=== PATIENT | male | born 1960 | race African-American/Black ===

== ENCOUNTER 2020-10-08 18:01 | Inpatient (IN) ==
[2020-10-08] MEDS ORDERED: NS 0.9% 1000 ml BAG 1,000 ML IV ONE (18:02)
[2020-10-08] MEDS ORDERED: Ondansetron 4 mg VIAL 2 MG/ML 2 ml VIAL IV ONE (18:03)
[2020-10-08] MEDS ORDERED: Iodixanol (CONTRAST) 320 MG/ML 100 ML SDV IV ONE (18:22)
[2020-10-08 18:33] LABS: Albumin 4.2 g/dL (3.2-5.2); Calcium 9.4 mg/dL (8.6-10.3); EGFR African American 63.8 (>60); EGFR Non-African American 52.7 (>60); Globulin 4.4 g/dL (2-4); HDL Cholesterol 33.4 mg/dL; Potassium 3.9 mmol/L (3.5-5.0); Total Bilirubin 0.5 mg/dL (0.2-1.0); Total Protein 8.6 g/dL (6.4-8.9)
[2020-10-08 18:47] LABS: Activated Partial Thrombo Time 26.5 seconds (26.0-38.0); INR 1.25 (0.86-1.15)
[2020-10-08 19:06] LABS: Hemoglobin 4.8 g/dL (14.0-18.0)
[2020-10-08 19:08] LABS: White Blood Count 10.5 10^3/uL (3.5-10.8)
[2020-10-08 19:09] LABS: Hematocrit 17 % (42-52); Red Blood Count 2.68 10^6 /uL (4.18-5.48)
[2020-10-08 19:13] LABS: Nucleated Red Blood Cells % 0.3
[2020-10-08 19:14] LABS: ABS Basophils 0.1 10^3/ul (0-0.2); Lymphocyte % 12.4 %
[2020-10-08 19:15] LABS: ABS Lymphocytes 1.3 10^3/ul (1.0-4.8); ABS Monocytes 0.5 10^3/ul (0-0.8); ABS Neutrophils 8.7 10^3/ul (1.5-7.7)
[2020-10-08 19:20] LABS: Platelet Count 572 10^3/uL (150-450)
[2020-10-08 19:21] LABS: Mean Corpuscular HGB Conc 29 g/dL (31-36); Mean Corpuscular Hemoglobin 18 pg (27-31); Mean Corpuscular Volume 62 fL (80-94); Red Cell Distribution Width 30 % (10-15)
[2020-10-08 19:22] LABS: Mean Platelet Volume 8.3 fL (7.4-10.4)
[2020-10-08 19:52] LABS: Hypochromasia 3+
[2020-10-08 19:53] LABS: Anisocytosis 1+; Platelet Morphology Large; Polychromasia 1+
[2020-10-08 20:41] LABS: Urine Appearance Clear; Urine Bilirubin Negative (Negative); Urine Blood Negative (Negative); Urine Color Straw; Urine Glucose Negative (Negative); Urine Ketones Negative (Negative); Urine Nitrite Negative (Negative); Urine Protein Negative (Negative); Urine Specific Gravity 1.033 (1.002-1.030); Urine Urobilinogen Negative (Negative)
[2020-10-09 04:22] LABS: Hematocrit 19 % (42-52)
[2020-10-09 04:23] LABS: Hemoglobin 5.9 g/dL (14.0-18.0)
[2020-10-09] MEDS: Pantoprazole VIAL 40 MG VIAL IV SCH ×2 (04:31→20:20)
[2020-10-09 04:37] LABS: % Iron Saturation 27 % (15-55); Iron 144 ug/dL (50-212); Total Iron Binding Capacity 529 mcg/dL (250-450); Transferrin 378 mg/dL (203-362); Unsaturated Iron Binding < 514 ug/dL
[2020-10-09 06:07] LABS: ABS Basophils 0.1 10^3/ul (0-0.2); ABS Lymphocytes 1.7 10^3/ul (1.0-4.8); ABS Monocytes 0.7 10^3/ul (0-0.8); ABS Neutrophils 5.4 10^3/ul (1.5-7.7); Eosinophil % 0.3 %; Mean Corpuscular HGB Conc 30 g/dL (31-36); Mean Corpuscular Hemoglobin 19 pg (27-31); Mean Corpuscular Volume 65 fL (80-94); Mean Platelet Volume 8.4 fL (7.4-10.4); Nucleated Red Blood Cells % 0.3; Platelet Count 445 10^3/uL (150-450); Red Blood Count 3.05 10^6 /uL (4.18-5.48); Red Cell Distribution Width 30 % (10-15); White Blood Count 7.9 10^3/uL (3.5-10.8)
[2020-10-09 08:54] LABS: Hematocrit 22 % (42-52); Hemoglobin 6.9 g/dL (14.0-18.0)
[2020-10-09 09:27] LABS: C Reactive Protein 1.63 mg/L (<8.01)
[2020-10-09] MEDS ORDERED: Iron Sucrose 200 MG in NS 0.9% 100 ml BAG 100 ML IVPB ONE (14:33)
[2020-10-09] MEDS ORDERED: Midazolam 10 mg/10 ml VIAL 1 mg/ml 10 ml VIAL (10 mg) ONE (15:25)
[2020-10-09] MEDS ORDERED: fentaNYL 100 mcg/2 ml 50 MCG/ML VIAL ONE (15:26)
[2020-10-09] MEDS ORDERED: PEG 3000 GI LAVAGE 1 GALLON PO ONE (16:41)
[2020-10-09 22:39] LABS: Hematocrit 26 % (42-52); Hemoglobin 8.2 g/dL (14.0-18.0)
[2020-10-10 06:15] LABS: Hematocrit 25 % (42-52); Hemoglobin 7.8 g/dL (14.0-18.0); Mean Corpuscular HGB Conc 31 g/dL (31-36); Mean Corpuscular Hemoglobin 22 pg (27-31); Mean Corpuscular Volume 69 fL (80-94); Mean Platelet Volume 8.1 fL (7.4-10.4); Platelet Count 355 10^3/uL (150-450); Red Blood Count 3.62 10^6 /uL (4.18-5.48); Red Cell Distribution Width 33 % (10-15); White Blood Count 7.9 10^3/uL (3.5-10.8)
[2020-10-10 06:32] LABS: Calcium 8.9 mg/dL (8.6-10.3); EGFR African American 74.3 (>60); EGFR Non-African American 61.4 (>60); Potassium 3.7 mmol/L (3.5-5.0)
[2020-10-10] MEDS: Pantoprazole VIAL 40 MG VIAL IV SCH ×2 (08:47→20:49)
[2020-10-10] MEDS: Iron Sucrose 200 MG in NS 0.9% 100 ml BAG 100 ML IVPB SCH (10:05)
[2020-10-10] MEDS ORDERED: fentaNYL 100 mcg/2 ml 50 MCG/ML VIAL ONE (12:03)
[2020-10-10] MEDS ORDERED: Midazolam 10 mg/10 ml VIAL 1 mg/ml 10 ml VIAL (10 mg) ONE (12:03)
[2020-10-11 07:16] LABS: Hematocrit 27 % (42-52); Hemoglobin 8.5 g/dL (14.0-18.0); Mean Corpuscular HGB Conc 32 g/dL (31-36); Mean Corpuscular Hemoglobin 22 pg (27-31); Mean Corpuscular Volume 70 fL (80-94); Mean Platelet Volume 8.2 fL (7.4-10.4); Platelet Count 314 10^3/uL (150-450); Red Blood Count 3.84 10^6 /uL (4.18-5.48); Red Cell Distribution Width 33 % (10-15); White Blood Count 7.5 10^3/uL (3.5-10.8)
[2020-10-11 07:25] LABS: Calcium 9.3 mg/dL (8.6-10.3); EGFR African American 70.2 (>60); Potassium 3.9 mmol/L (3.5-5.0)
[2020-10-11] MEDS: Pantoprazole VIAL 40 MG VIAL IV SCH (09:54)
[2020-10-11] MEDS: Iron Sucrose 200 MG in NS 0.9% 100 ml BAG 100 ML IVPB SCH (09:58)
[2020-10-11 11:40] VITALS: BP 146/81
== END 2020-10-11 15:00 | disposition home or self-care (01) | DRG 811 ==
LOC: ED 18:01 → MEDTELE 23:51
PROVIDERS: ADMIT Internal Medicine; ATTEND Hospitalist

== ENCOUNTER 2020-10-16 19:23 | Inpatient (IN) ==
[2020-10-17] MEDS ORDERED: NS 0.9% 1000 ml BAG 1,000 ML IV ONE (00:17)
[2020-10-17 01:00] LABS: Hematocrit 26 % (42-52); Hemoglobin 7.9 g/dL (14.0-18.0); Mean Corpuscular HGB Conc 30 g/dL (31-36); Mean Corpuscular Hemoglobin 24 pg (27-31); Mean Corpuscular Volume 78 fL (80-94); Mean Platelet Volume 8.1 fL (7.4-10.4); Platelet Count 129 10^3/uL (150-450); Red Blood Count 3.35 10^6 /uL (4.18-5.48); Red Cell Distribution Width 39 % (10-15); White Blood Count 6.4 10^3/uL (3.5-10.8)
[2020-10-17 01:09] LABS: Activated Partial Thrombo Time 31.4 seconds (26.0-38.0); INR 1.27 (0.86-1.15)
[2020-10-17 01:17] LABS: C Reactive Protein 1.97 mg/L (<8.01); Calcium 9.2 mg/dL (8.6-10.3); EGFR African American 79.6 (>60); EGFR Non-African American 65.7 (>60); Globulin 3.9 g/dL (2-4); Potassium 3.9 mmol/L (3.5-5.0); Total Bilirubin 0.3 mg/dL (0.2-1.0); Total Protein 7.9 g/dL (6.4-8.9)
[2020-10-17 03:55] LABS: ABS Lymphocytes 1.7 10^3/ul (1.0-4.8); ABS Monocytes 0.5 10^3/ul (0-0.8); ABS Neutrophils 4.1 10^3/ul (1.5-7.7); Anisocytosis 3+; Eosinophil % 0.6 %; Hypochromasia 1+; Lymphocyte % 26.9 %; Microcytosis 1+
[2020-10-17 06:10] LABS: Hematocrit 22 % (42-52); Hemoglobin 6.8 g/dL (14.0-18.0); Mean Corpuscular HGB Conc 31 g/dL (31-36); Mean Corpuscular Hemoglobin 24 pg (27-31); Mean Corpuscular Volume 78 fL (80-94); Red Blood Count 2.77 10^6 /uL (4.18-5.48); Red Cell Distribution Width 38 % (10-15); White Blood Count 6.5 10^3/uL (3.5-10.8)
[2020-10-17 06:23] LABS: Albumin 3.5 g/dL (3.2-5.2); Albumin/Globulin Ratio 1.1 (1-3); Calcium 8.4 mg/dL (8.6-10.3); EGFR African American 85.6 (>60); EGFR Non-African American 70.7 (>60); Globulin 3.3 g/dL (2-4); Total Bilirubin 0.3 mg/dL (0.2-1.0); Total Protein 6.8 g/dL (6.4-8.9)
[2020-10-17 06:29] LABS: Mean Platelet Volume 8.4 fL (7.4-10.4); Platelet Count 98 10^3/uL (150-450)
[2020-10-17 06:30] LABS: ABS Basophils 0.1 10^3/ul (0-0.2); ABS Lymphocytes 1.4 10^3/ul (1.0-4.8); ABS Monocytes 0.5 10^3/ul (0-0.8); ABS Neutrophils 4.5 10^3/ul (1.5-7.7); Eosinophil % 0.4 %; Lymphocyte % 22.2 %; Nucleated Red Blood Cells % 0.1
[2020-10-17 11:45] LABS: Fibrinogen 257.3 mg/dL (110.8-404.3)
[2020-10-17 16:58] LABS: Hematocrit 26 % (42-52); Hemoglobin 8.2 g/dL (14.0-18.0); Mean Corpuscular HGB Conc 31 g/dL (31-36); Mean Corpuscular Hemoglobin 25 pg (27-31); Mean Corpuscular Volume 79 fL (80-94); Mean Platelet Volume 8.1 fL (7.4-10.4); Platelet Count 101 10^3/uL (150-450); Red Cell Distribution Width 35 % (10-15); White Blood Count 4.9 10^3/uL (3.5-10.8)
[2020-10-17] MEDS ORDERED: Iohexol 300 (CONTRAST) 10 ML SDV IV ONE (19:45)
[2020-10-17] MEDS ORDERED: Polyethylene Glycol 3350 17 GM PACKET PO ONE (21:00)
[2020-10-18 06:23] LABS: Hematocrit 25 % (42-52); Hemoglobin 8.3 g/dL (14.0-18.0); Mean Corpuscular HGB Conc 33 g/dL (31-36); Mean Corpuscular Hemoglobin 26 pg (27-31); Mean Corpuscular Volume 78 fL (80-94); Mean Platelet Volume 8.4 fL (7.4-10.4); Platelet Count 105 10^3/uL (150-450); Red Blood Count 3.23 10^6 /uL (4.18-5.48); Red Cell Distribution Width 36 % (10-15); White Blood Count 5.3 10^3/uL (3.5-10.8)
[2020-10-18 06:44] LABS: Anion Gap 9 mmol/L (2-11); Blood Urea Nitrogen 14 mg/dL (6-24); CO2 Carbon Dioxide 19 mmol/L (22-32); Calcium 8.8 mg/dL (8.6-10.3); Chloride 107 mmol/L (101-111); EGFR African American 85.6 (>60); EGFR Non-African American 70.7 (>60); Glucose 93 mg/dL (70-100); Sodium 135 mmol/L (135-145)
[2020-10-18] MEDS ORDERED: Midazolam 10 mg/10 ml VIAL 1 mg/ml 10 ml VIAL (10 mg) ONE (10:35)
[2020-10-18] MEDS ORDERED: fentaNYL 100 mcg/2 ml 50 MCG/ML VIAL ONE ×2 (10:35)
[2020-10-18] MEDS ORDERED: Midazolam 10 mg/10 ml VIAL 1 mg/ml 10 ml VIAL (10 mg) IV SLOW PU ONE (10:35)
[2020-10-18] MEDS ORDERED: Polyethylene Glycol 3350 17 GM PACKET PO ONE (22:00)
[2020-10-19 05:56] LABS: Hematocrit 25 % (42-52); Hemoglobin 7.8 g/dL (14.0-18.0); Mean Corpuscular HGB Conc 32 g/dL (31-36); Mean Corpuscular Hemoglobin 25 pg (27-31); Mean Corpuscular Volume 80 fL (80-94); Mean Platelet Volume 8.3 fL (7.4-10.4); Platelet Count 140 10^3/uL (150-450); Red Blood Count 3.08 10^6 /uL (4.18-5.48); Red Cell Distribution Width 37 % (10-15); White Blood Count 6.1 10^3/uL (3.5-10.8)
[2020-10-19] MEDS ORDERED: Polyethylene Glycol 3350 17 GM PACKET PO ONE ×2 (06:00→17:00)
[2020-10-19 14:01] LABS: % Iron Saturation 21 % (15-55); Iron 84 ug/dL (50-212); Total Iron Binding Capacity 407 mcg/dL (250-450); Transferrin 291 mg/dL (203-362); Unsaturated Iron Binding < 392 ug/dL
[2020-10-19 14:22] LABS: Ferritin 266.2 ng/mL (24-336)
[2020-10-20] MEDS ORDERED: Polyethylene Glycol 3350 17 GM PACKET PO ONE (06:00)
[2020-10-20 06:27] LABS: Hematocrit 26 % (42-52); Hemoglobin 8.2 g/dL (14.0-18.0); Mean Corpuscular HGB Conc 32 g/dL (31-36); Mean Corpuscular Hemoglobin 26 pg (27-31); Mean Corpuscular Volume 80 fL (80-94); Mean Platelet Volume 8.8 fL (7.4-10.4); Platelet Count 191 10^3/uL (150-450); Red Cell Distribution Width 37 % (10-15); White Blood Count 5.1 10^3/uL (3.5-10.8)
[2020-10-20 06:38] LABS: Calcium 9.2 mg/dL (8.6-10.3); EGFR African American 85.6 (>60); EGFR Non-African American 70.7 (>60)
[2020-10-20] MEDS ORDERED: D5LR 1000 ml BAG 1,000 ML IV SCH (10:00)
[2020-10-20] MEDS: Pantoprazole VIAL 40 MG VIAL IV SCH (12:23)
[2020-10-20 17:37] LABS: Anaplasma phagocytophilum Negative (Negative); B. miyamotoi PCR, B Negative (Negative); Babesia divergens/MO-1 Negative (Negative); Babesia ducani Negative (Negative); Ehrlichia chaffeensis Negative (Negative); Ehrlichia ewingii/canis Negative (Negative); Ehrlichia muris eauclairensis Negative (Negative)
[2020-10-21 06:16] LABS: Hematocrit 25 % (42-52); Hemoglobin 8.4 g/dL (14.0-18.0); Mean Corpuscular HGB Conc 33 g/dL (31-36); Mean Corpuscular Hemoglobin 27 pg (27-31); Mean Corpuscular Volume 80 fL (80-94); Mean Platelet Volume 8.6 fL (7.4-10.4); Platelet Count 268 10^3/uL (150-450); Red Blood Count 3.15 10^6 /uL (4.18-5.48); Red Cell Distribution Width 37 % (10-15); White Blood Count 5.9 10^3/uL (3.5-10.8)
[2020-10-21 06:26] LABS: INR 1.3 (0.86-1.15)
[2020-10-21 06:39] LABS: EGFR African American 83.8 (>60); EGFR Non-African American 69.2 (>60); Magnesium 2.1 mg/dL (1.9-2.7); Potassium 3.7 mmol/L (3.5-5.0)
[2020-10-21 06:40] LABS: ABS Basophils 0.1 10^3/ul (0-0.2); ABS Eosinophils 0.1 10^3/ul (0-0.6); ABS Lymphocytes 1.5 10^3/ul (1.0-4.8); ABS Monocytes 0.4 10^3/ul (0-0.8); ABS Neutrophils 3.9 10^3/ul (1.5-7.7); Lymphocyte % 24.8 %
[2020-10-21 06:41] LABS: Anisocytosis 3+; Polychromasia 1+
[2020-10-21] MEDS: Pantoprazole VIAL 40 MG VIAL IV SCH (09:01)
[2020-10-21] MEDS ORDERED: Gelfoam 12-7 ADSORBABL SPONGE ONE ×2 (09:56)
[2020-10-21] MEDS ORDERED: Gelfoam Sponge SIZE 100 SPONGE ONE ×2 (09:56)
[2020-10-21] MEDS ORDERED: fentaNYL 100 mcg/2 ml 50 MCG/ML VIAL ONE ×3 (11:44→11:45)
[2020-10-21] MEDS ORDERED: Iohexol 300 (CONTRAST) 10 ML SDV IV ONE (15:43)
[2020-10-22 05:05] LABS: Hematocrit 25 % (42-52); Hemoglobin 8.1 g/dL (14.0-18.0); Mean Corpuscular HGB Conc 33 g/dL (31-36); Mean Corpuscular Hemoglobin 26 pg (27-31); Mean Corpuscular Volume 80 fL (80-94); Mean Platelet Volume 8.6 fL (7.4-10.4); Platelet Count 325 10^3/uL (150-450); Red Blood Count 3.09 10^6 /uL (4.18-5.48); Red Cell Distribution Width 36 % (10-15); White Blood Count 4.6 10^3/uL (3.5-10.8)
[2020-10-22 05:12] LABS: ABS Lymphocytes 1.3 10^3/ul (1.0-4.8); ABS Monocytes 0.3 10^3/ul (0-0.8); ABS Neutrophils 2.9 10^3/ul (1.5-7.7); Eosinophil % 0.6 %; Lymphocyte % 27.9 %
[2020-10-22 05:34] LABS: Calcium 8.8 mg/dL (8.6-10.3); EGFR African American 90.5 (>60); EGFR Non-African American 74.8 (>60); Potassium 3.7 mmol/L (3.5-5.0)
[2020-10-22] MEDS: Pantoprazole VIAL 40 MG VIAL IV SCH (08:31)
[2020-10-22] MEDS ORDERED: Potassium Chlor 20 meq TAB.ER PO ONE (11:58)
[2020-10-23 05:55] LABS: Hematocrit 26 % (42-52); Hemoglobin 8.5 g/dL (14.0-18.0); Mean Corpuscular HGB Conc 33 g/dL (31-36); Mean Corpuscular Hemoglobin 26 pg (27-31); Mean Corpuscular Volume 80 fL (80-94); Platelet Count 385 10^3/uL (150-450); Red Blood Count 3.22 10^6 /uL (4.18-5.48); Red Cell Distribution Width 36 % (10-15); White Blood Count 4.6 10^3/uL (3.5-10.8)
[2020-10-23 06:11] LABS: Calcium 9.2 mg/dL (8.6-10.3); EGFR African American 91.5 (>60); EGFR Non-African American 75.6 (>60)
[2020-10-23 07:52] LABS: ABS Lymphocytes 1.2 10^3/ul (1.0-4.8); ABS Monocytes 0.3 10^3/ul (0-0.8); ABS Neutrophils 2.9 10^3/ul (1.5-7.7); Eosinophil % 0.9 %; Lymphocyte % 27.1 %; Nucleated Red Blood Cells % 0.1
[2020-10-23 08:07] LABS: Anisocytosis 2+; Basophilic Stippling 1+
[2020-10-23] MEDS: Pantoprazole VIAL 40 MG VIAL IV SCH (08:11)
[2020-10-23] MEDS ORDERED: Naloxone 0.4 mg VIAL 0.4 mg/ml 1 ml VIAL ONE (12:21)
[2020-10-23] MEDS ORDERED: fentaNYL 100 mcg/2 ml 50 MCG/ML VIAL ONE ×2 (12:21)
[2020-10-23] MEDS ORDERED: Midazolam 5 mg/5 ml VIAL 1 mg/ml 5 ml VIAL (5 mg) ONE ×2 (12:21)
[2020-10-23] MEDS ORDERED: Flumazenil 0.5 mg/5 ml 0.1 MG/ML 5 ml VIAL ONE (12:21)
[2020-10-23 15:57] VITALS: BP 127/83
== END 2020-10-23 17:25 | disposition home or self-care (01) | DRG 254 ==
LOC: ED 19:23 → MED 19:23
PROVIDERS: ADMIT Hospitalist; ATTEND Internal Medicine